=== PATIENT | female | born 1950 | race African-American/Black ===

== ENCOUNTER 2020-11-26 09:29 | Day surgery (SDC) | payer OTHER ==
[2020-11-23 14:29] VITALS: BMI 36.8
[2020-11-26] MEDS ORDERED: PROPOFOL 20 ML ONE ×2 (10:09)
[2020-11-26 10:31] VITALS: TEMP 97.8
[2020-11-26 12:38] VITALS: BP 110/65; PULSE 80
== END 2020-11-26 11:10 | disposition home or self-care (01) ==
LOC: FASU-ENDO 09:29
PROVIDERS: ATTEND Internal Medicine Gastroenterology
PROC: 0DJD8ZZ Inspection of Lower Intestinal Tract, Via Natural or Artificial Opening Endoscopic (ICD-10-PCS; principal; 2020-11-26 10:00)
DX: Z12.11 Encounter for screening for malignant neoplasm of colon (principal)